=== PATIENT | female | born 1985 | race Caucasian/White ===

== ENCOUNTER 2022-11-13 18:53 | Outpatient (CLI) | payer BC, SELFPAY ==
[2022-11-13 20:24] LABS: Cholesterol* 211 mg/dL (90-199); Glucose* 107 mg/dL (60-115)
[2022-11-13 20:25] LABS: HDL Cholesterol* 72 mg/dL (>=50); LDL Cholesterol Calculated 120 mg/dL (<100); Triglycerides* 95 mg/dL (40-149)
== END 2022-11-13 18:54 | disposition home or self-care (01) ==
PROVIDERS: PCP Family Medicine; Visit Provider Registered Nurse
DX: Z13.6 Encounter for screening for cardiovascular disorders (principal); Z13.1 Encounter for screening for diabetes mellitus
CPT/HCPCS: 80061; 82947

== ENCOUNTER 2022-11-15 14:41 | Outpatient (CLI) | payer BC, SELFPAY ==
[2022-11-15 22:13] LABS: Albumin* 4.1 g/dL (3.3-5.0); Chloride* 103 mmol/L (96-114); Sodium* 139 mmol/L (135-149)
[2022-11-15 22:14] LABS: Potassium* 3.9 mmol/L (3.6-5.1)
[2022-11-15 22:16] LABS: Alkaline Phosphatase* 98 U/L (40-150); Aspartate Amino Transferase* 434 U/L (12-35); Bilirubin Total* 3.1 mg/dL (0.1-1.5); Blood Urea Nitrogen* 10 mg/dL (5-24); Calcium* 9.5 mg/dL (8.4-10.6); Carbon Dioxide* 30 mmol/L (20-32); Creatinine* 0.9 mg/dL (0.5-1.5); Estimated Glomerular Filt Rate 84 ml/min; Glucose* 107 mg/dL (60-115); Total Protein* 7.1 g/dL (6.0-8.3)
[2022-11-15 22:54] LABS: Alanine Aminotransferase* 913 U/L (4-35)
== END 2022-11-15 14:42 | disposition home or self-care (01) ==
LOC: FRMREF 14:44
PROVIDERS: Visit Provider Physician Assistant Medical
DX: R10.13 Epigastric pain (principal)
CPT/HCPCS: 80053

== ENCOUNTER 2022-11-19 07:18 | Outpatient (CLI) | payer BC, SELFPAY ==
--- NOTE | 2022-11-19 07:15 | CRLHL7_ITS ---
For Patients: As a result of the Century Cures Act, medical imaging exams and procedure reports are released immediately into your electronic medical record. You may view this report before your referring provider. If you have questions, please contact your health care provider. INDICATION: Epigastric pain COMPARISON: none TECHNIQUE: Real time otero scale imaging and color Doppler analysis was performed of the right upper quadrant. FINDINGS: The patient`s liver is of normal size and has uniform echogenicity. There is a normal appearance of the hepatic IVC and proximal abdominal aorta. There is no evidence of ascites. The gallbladder is of normal size and there are echogenic and shadowing gallstones within the gallbladder lumen measuring up to 1.7 cm. The gallbladder wall measures 2 mm in thickness. The common bile duct is of normal size and measures 6 mm in diameter at the level of the richard hepatis. The pancreas appears normal. There is no evidence of a stone or hydronephrosis within the right kidney. The right kidney measures 10.5 cm in length. IMPRESSION: Multiple gallstones within the gallbladder lumen compatible with cholelithiasis. Dictated by Jeff Quiñones MD @ 11/19/2022 9:42:05 AM (Electronically Signed)
== END 2022-11-19 07:19 | disposition home or self-care (01) ==
LOC: US 07:19
PROVIDERS: PCP Physician Assistant Medical; Visit Provider Physician Assistant Medical
DX: R10.13 Epigastric pain (principal); K80.20 Calculus of gallbladder without cholecystitis without obstruction
CPT/HCPCS: 76705

== ENCOUNTER 2022-11-21 13:54 | Outpatient (CLI) | payer BC, SELFPAY ==
[2022-11-21 17:51] LABS: Bilirubin Direct* 0.3 mg/dL (0.0-0.5); Bilirubin Total* 0.6 mg/dL (0.1-1.5); Total Protein* 7.2 g/dL (6.0-8.3)
[2022-11-21 17:52] LABS: Alanine Aminotransferase* 192 U/L (4-35); Alkaline Phosphatase* 65 U/L (40-150)
[2022-11-21 18:07] LABS: Aspartate Amino Transferase* 46 U/L (12-35)
== END 2022-11-21 13:55 | disposition home or self-care (01) ==
LOC: FRMREF 13:54
PROVIDERS: PCP Physician Assistant Medical; Visit Provider Surgery
DX: R79.89 Other specified abnormal findings of blood chemistry (principal)
CPT/HCPCS: 80076

== ENCOUNTER 2023-04-15 17:54 | Outpatient (CLI) | payer BC, SELFPAY ==
--- NOTE | 2023-04-15 18:13 | CRLHL7_ITS ---
For Patients: As a result of the Century Cures Act, medical imaging exams and procedure reports are released immediately into your electronic medical record. You may view this report before your referring provider. If you have questions, please contact your health care provider. INDICATION: Right upper quadrant pain TECHNIQUE: Ultrasound abdomen limited. Sonographic images of the right upper quadrant were obtained using otero-scale and color Doppler images. COMPARISON: 11/19/2022 FINDINGS: Liver: Normal in size and echotexture. No masses. No intrahepatic biliary dilatation. Gallbladder: Multiple shadowing gallstones. No pericholecystic fluid. Common bile duct: 5 mm. Pancreas: Suboptimally visualized. Right kidney: 9.8 cm. Normal echotexture and cortex. No masses, stones, or hydronephrosis. Vasculature: Proximal abdominal aorta and IVC are normal. IMPRESSION: Multiple shadowing gallstones. Normal common bile duct. Dictated by Jeff Ramírez MD @ 04/15/2023 7:00:56 PM (Electronically Signed)
== END 2023-04-15 17:55 | disposition home or self-care (01) ==
LOC: US 17:57
PROVIDERS: PCP Physician Assistant Medical; Visit Provider Physician Assistant
DX: R10.11 Right upper quadrant pain (principal); K80.20 Calculus of gallbladder without cholecystitis without obstruction
CPT/HCPCS: 76705; 80076; 83690

== ENCOUNTER 2023-04-16 11:26 | Day surgery (SDC) | payer SELFPAY ==
[2023-04-16] VITALS (16 sets, daily range): BP systolic 121–137; BP diastolic 75–85; PULSE 76–98; RESP 14–18; TEMP 35.9–36.9; O2SAT 96–99; BMI 30.1
[2023-04-16 12:09] LABS: Ur HCG Qualitative* Negative (Negative)
[2023-04-16] MEDS: LACTATED RINGERS 1000 ML 1,000 ML 100 ML IV (13:37)
--- NOTE | 2023-04-16 14:11 | W.ANESCHARGE ---
Anesthesia Charges Start Date/Time Anesthesia Start Date: 04/16/23 Anesthesia Start Time: 13:39 Stop Date/Time Anesthesia Stop Date: 04/16/23 Anesthesia Stop Time: 15:44
[2023-04-16] MEDS: BUPIVACAINE 0.25% 30 ML INJECTION (15:22)
--- NOTE | 2023-04-16 15:26 | W.ANESCHARGE ---
Anesthesia Charges Start Date/Time Anesthesia Start Date: 04/16/23 Anesthesia Start Time: 13:39 Stop Date/Time Anesthesia Stop Date: 04/16/23 Anesthesia Stop Time: 15:44
--- NOTE | 2023-04-16 15:37 | P.GSCN_ITS ---
History of Present Illness Consult details Date Seen: 04/16/23 Consult date: 04/16/23 Narrative: 38-year-old female was referred to our clinic from urgent care for evaluation of epigastric and right upper quadrant pain. Patient developed epigastric pain on Saturday night. This was different from her ?usual? epigastric pain. This was described as sharp and radiated to the right upper quadrant. She had nausea and this pain continued for the next several days. She vomited on . Her pain continues and started to radiate to the lower abdomen as well. Patient was having bowel movements. Patient was previously seen in my clinic with biliary colic and laparoscopic cholecystectomy was recommended. However, patient decided not to proceed with surgery. Patient states that she had milder symptoms of epigastric and right upper quadrant pain once every 1-2 months. She changed her diet and was trying to lose weight to avoid proceeding with surgery. Patient called triage line yesterday and was recommended to go to urgent care. Patient was seen at urgent care and her WBC was found to be 12. A gallbladder ultrasound was obtained that showed cholelithiasis with common bile duct of 0.4- 0.5 cm. The gallbladder wall was measuring 3 mm. Patient had acute tenderness to palpation in the right upper quadrant and urgent care contacted surgery on- call. Patient's liver function tests were drawn but did not result yesterday. The results of her liver function tests today were AST of 91, ALT 301, total bilirubin 1.3, direct bilirubin 0.5, and lipase was normal. Review of Systems Narrative: General: no fevers HENT: no problems swallowing CV: no shortness of breath Resp: no cough GI: See above : no dysuria, no increased urinary frequency, no hematuria Skin: no new rashes Musculoskeletal: no back pain Neuro: no muscle weakness PFSH PFSH Medical History Spontaneous vaginal delivery ?O80 - Encounter for full-term uncomplicated delivery (ICD-10) Family History Paternal Grandfather Myocardial infarction Arthritis Maternal Grandmother High blood pressure Maternal Grandfather Prostate cancer Kidney malignancy Father High cholesterol Mother High blood pressure Sister Celiac disease Social History Narrative: Patient works as a teacher. Smoking Status: Never smoker How often do you have a drink containing alcohol: monthly or less How often do you have six or more drinks on one occasion: Never AUDIT-C Alcohol total score: 1 Non-prescribed substance use: denies use Caffeine: Yes Little interest or pleasure in doing things: not at all Feeling down, depressed, or hopeless: not at all Are you using contraception or practicing any form of control: Yes Meds Home Medications and Allergies Allergies Allergy/AdvReac Type Severity Reaction Status Date / Time No Known Allergies Allergy Verified 04/16/23 11:41 Exam Narrative: Exam Narrative: General appearance: Alert, cooperative, and in no distress Pulmonary: Chest symmetric, lungs clear bilaterally Cardiovascular Heart: Regular rate and rhythm, S1, S2, no murmurs/rubs/gallops Gastrointestinal Abdominal: soft, not distended, minimally tender to palpation in bilateral lower quadrants and acutely tender to palpation in epigastrium and right upper quadrant with involuntary guarding in the right upper quadrant and positive Saleh sign. Skin: Normal skin color, texture, and turgor. No rashes or lesions. Psychiatric: Alert, cooperative, normal affect. Const: Vital Signs, click to edit/add: Vital Signs - 24 hr 04/16/23 12:03 Temperature 98.4 F Pulse Rate 86 Respiratory Rate 16 Blood Pressure 121/76 Pulse Oximetry 98 Oxygen Delivery Me thod Room Air Results Labs Labs: All other labs normal. Assessment and Plan Assessment and plan (1) Cholecystitis, acute: Status: Acute Plan 38-year-old female presents with biliary colic and probable acute cholecystitis. I discussed with the patient and her her laboratory and ultrasound findings. On clinical exam she has tenderness to palpation in the right upper quadrant with involuntary guarding and positive Saleh sign. Her WBC is elevated at 12. Her gallbladder ultrasound showed that the gallbladder wall is at the upper limits of normal. All those findings are suggestive of acute cholecystitis. I recommended to proceed with laparoscopic cholecystectomy. The procedure was discussed in detail. The risks associated procedure including infection, bleeding, injury to intra-abdominal organ, and injury to the common bile duct were all discussed with the patient, and she agreed to proceed.
[2023-04-16] MEDS: LACTATED RINGERS 1000 ML 1,000 ML 35 ML IV (15:41)
--- NOTE | 2023-04-16 15:45 | P.GSOP_ITS ---
Operative Note Date of procedure: 04/16/23 Pre-op diagnosis: 1. Biliary colic. 2. Probable acute cholecystitis. Post-op diagnosis: 1. Biliary colic. 2. Acute on chronic cholecystitis. Type of Procedure: 1. Laparoscopic cholecystectomy. Indications: 38-year-old female with history of gallstones was seen for evaluation of persistent right upper quadrant and epigastric pain of several days duration. Patient's pain started acutely and was not improving like her previous episodes of biliary colic. Patient had nausea and vomiting. She was seen in urgent care where she was found to have an elevated WBC of 12. Liver function tests were evaluated and she had transaminitis with normal bilirubin and normal lipase. A gallbladder ultrasound was obtained that showed gallbladder wall of 3 mm, presence of cholelithiasis, and normal common bile duct. On clinical exam patient had tenderness to palpation in the right upper quadrant with involuntary guarding and positive Saleh sign concerning for acute cholecystitis. Given patient's clinical picture and her physical exam, acute cholecystitis was suspected, and laparoscopic cholecystectomy was recommended. The procedure was discussed in detail. The risks associated procedure including infection, bleeding, injury to intra-abdominal organs, and injury to the common bile duct were all discussed with the patient, and she agreed to proceed. Procedure Description: After discussing the risks and benefits of the procedure, the patient signed informed consent.? The operative site was marked and the patient was brought to the operating room and placed on the operating table in supine position.? Care was taken to pad the patient's pressure points.?? The patient was then intubated by anesthesia.?? The operative site was then prepped and draped in the usual sterile fashion.? A time-out was then performed. A 5-mm laparoscopy port was placed in the left upper quadrant guided by a 5-mm laparoscope placed into a translucent trochar.~ Passage through the layers of the abdominal wall was visualized with the laparoscope.~ A pneumoperitoneum was established. A 0-degree 5-mm laparoscope was advanced into the abdomen. The abdomen was briefly surveyed, and no adhesions were noted. A 10-mm port were placed infraumbilically and two more 5 mm ports were placed on the right under direct visualization by laparoscope. The camera was then changed to 10 mm 30- degree scope and placed into the abdomen through the 10 mm port. The left upper quadrant port entrance was examined and no injury to intra-abdominal organs was identified. The gallbladder was identified, the fundus grasped and retracted cephalad. Omentum was adherent to the proximal half of the gallbladder. Those omental adhesions were taken down with hook cautery. The infundibulum was grasped and retracted laterally, exposing the peritoneum overlying the triangle of Calot. This was then divided and exposed in a blunt fashion and with hook cautery. Scar tissue was overlying the infundibulum and distal cystic duct. I stayed near the infundibulum to avoid injury to the common bile duct. The common bile duct was not identified clearly. The cystic duct was clearly identified and bluntly dissected circumferentially. Cystic artery was identified and tissues around it were dissected off. The cystic artery and the cystic duct were clearly going into the gallbladder. The cystic artery was clipped with 2 5 mm clips on the patient's side and a single clip on the specimen side and divided with scissors. The cystic duct was then doubly ligated with surgical clips on the patient's side and singly clipped on the gallbladder side and divided. Since I stayed near the infundibulum on the cystic duct, the clips did not go across the cystic duct. 0-0 Prolene suture was then used to control cystic duct stump. This was placed just proximal to the cystic duct clips. The gallbladder was dissected from the liver bed in retrograde fashion using hookcautery. Multiple small blood vessels were identified going into the posterior gallbladder. Those were clipped with 5 mm clips on the patient's side and divided with hook cautery near the specimen. The gallbladder was placed into an Endo-Catch bag and removed through the infraumbilical incision. Surgical site was examined for bleeding. No bleeding was seen in the surgical field. The fascia of the infraumbilical incision was then closed with interrupted 0-0 vicryl suture using Jaden Bhanu needle under direct visualization. Pneumoperitoneum was completely reduced after viewing removal of the trocars under direct vision. The skin was then closed with 4-0 monocryl and steristrips were applied. Instrument, sponge, and needle counts were correct at closure and at the conclusion of the case. The patient was transferred to PACU in stable condition. Findings: Cholelithiasis, acute on chronic cholecystitis. Surgeon: Sumeet Aguilar MD Estimated blood loss (mL): 15 Specimen: Gallbladder Condition: stable Disposition: PACU
[2023-04-16] MEDS: ONDANSETRON 2 MG/ML inj IVP ×2 (17:20→18:10)
--- NOTE | 2023-04-16 18:45 | PC.NURSE ---
t drowsy when arriving from surgery. Pt alert and oriented after short period. Pt had indigestion; see EMAR for intervention.?After second half of PRN dose Pt felt better. Pt was up tp bathroom at 1830 and voided. Pt has 4 sites with steri strips.
--- NOTE | 2023-04-16 19:54 | PC.NURSE ---
Called Dr. Aguilar as patient's pharmacy is closing shortly. Ok to do script through [facility] as follows: [place] 5mg/325mg tablets. Take 1 tablet orally every 6 hours as needed for pain, 30 tablets, no refills. Prescription that is currently at [facility], was cancelled by typewriters functional tester.
[2023-04-16] MEDS: MAG HYDROX/ALUMINUM HYD/SIMETH 30 ML ORAL.SUSP 15 ML PO (20:35)
--- NOTE | 2023-04-16 20:45 | PC.NURSE ---
Dismissal note: Patient vitally stable. PIV removed. All concerns addressed. Patient informed that she will receive a f/u call in the am with regards to her discharge instructions discrepancy about not showering for 2 weeks vs the standard not showering for 24 hours. Patient agreeable and discharged to home.
== END 2023-04-16 20:45 | disposition home or self-care (01) ==
LOC: OR 15:51 → MEDSURG 16:54
PROVIDERS: PCP Physician Assistant Medical; Visit Provider Surgery
PROC: 0FT44ZZ Resection of Gallbladder, Percutaneous Endoscopic Approach (ICD-10-PCS; CPT 47562; principal; 2023-04-16 13:30)
DX: K80.12 Calculus of gallbladder with acute and chronic cholecystitis without obstruction (principal)
CPT/HCPCS: 47562; 00790; 81025; 88304; A9270; J0330; J0665; J1100; J1170; J2250; J2405; J2704; J3010; J7120

== ENCOUNTER 2023-11-26 07:28 | Outpatient (CLI) | payer BC, SELFPAY | END 2023-11-26 07:29 | disposition home or self-care (01) | LOC: NFLDREF 12-04 12:40 | PROVIDERS: PCP Physician Assistant Medical; Referring Provider Physician Assistant Medical; Visit Provider Registered Nurse | DX: Z13.6 Encounter for screening for cardiovascular disorders (principal) | CPT/HCPCS: 80061 ==

== ENCOUNTER 2024-11-19 07:50 | Outpatient (CLI) | payer BC, SELFPAY | END 2024-11-19 07:51 | disposition home or self-care (01) | LOC: NFLDREF 11-23 18:26 | PROVIDERS: PCP Physician Assistant Medical; Referring Provider Physician Assistant Medical; Visit Provider Registered Nurse | DX: Z13.6 Encounter for screening for cardiovascular disorders (principal) | CPT/HCPCS: 80061 ==

== ENCOUNTER 2025-02-02 16:17 | Outpatient (CLI) | payer BC, SELFPAY ==
--- NOTE | 2025-02-02 16:40 | CRLHL7_ITS ---
For Patients: As a result of the Century Cures Act, medical imaging exams and procedure reports are released immediately into your electronic medical record. You may view this report before your referring provider. If you have questions, please contact your health care provider. INDICATION: BILATERAL SCREENING MAMMOGRAM, ASYMPTOMATIC 40 F COMPARISON: Baseline TECHNIQUE: CC and MLO views were obtained. These mammographic images have been obtained using full-field digital technique. These mammographic images were interpreted with the benefit of computer aided detection and tomosynthesis. BREAST COMPOSITION: There are scattered areas of fibroglandular density. FINDINGS: No suspicious findings. ASSESSMENT: BI-RADS 1 Negative RECOMMENDATION: Annual screening mammogram. A lay language report of this examination will be provided to the patient. Dictated by: Jeff Quiñones MD @ 02/05/2025 12:41:52 (Electronically Signed)
== END 2025-02-02 16:18 | disposition home or self-care (01) ==
LOC: MAMMO 16:18
PROVIDERS: Visit Provider Registered Nurse
DX: Z12.31 Encounter for screening mammogram for malignant neoplasm of breast (principal)
CPT/HCPCS: 77063; 77067